=== PATIENT | female | born 1980 | race Caucasian/White ===

== ENCOUNTER 2018-11-19 22:02 | Inpatient (IN) | payer MEDICAID ==
[2018-11-20 02:44] LABS: ADD MAN DIFF? NO
[2018-11-20 02:51] LABS: BASOPHILS % 0.3 % (0.0-2.0); EOSINOPHILS % 0.1 % (0.0-7.0); HEMOGLOBIN 14.2 g/dl (12.0-16.0); LYMPHOCYTES # 0.8 10^3/ul (0.8-2.9); LYMPHOCYTES % 7.9 % (15.0-51.0); MEAN CORPUSCULAR HEMOGLOBIN 28.9 pg (29.0-33.0); MEAN CORPUSCULAR VOLUME 87.6 fl (82.0-101.0); MEAN PLATELET VOLUME 10.5 fl (7.4-10.4); MONOCYTE # 0.4 10^3/ul (0.3-0.9); MONOCYTES % 4.1 % (0.0-11.0); NEUTROPHIL # 8.3 10^3/ul (1.6-7.5); NEUTROPHILS % 87.3 % (39.0-77.0); PLATELET COUNT 216 10^3/UL (140-415); RED BLOOD COUNT 4.91 10^6/ul (4.20-5.40); RED CELL DISTRIBUTION WIDTH 12.5 % (11.5-14.5)
[2018-11-20 02:51] LABS: WHITE BLOOD COUNT 9.5 10^3/ul (4.8-10.8)
[2018-11-20] MEDS: SODIUM CHLORIDE 0.9% 1L BAG IV* (02:56)
[2018-11-20] MEDS: ONDANSETRON 4 MG INJ IV (02:57)
[2018-11-20] MEDS: morphine 4 MG/ML VIAL IV (02:57)
[2018-11-20] MEDS: ACETAMINOPHEN 325 MG TAB PO (02:57)
[2018-11-20] MEDS: CEFTRIAXONE 1 GM/50 ML (PMX) 50 ML IVPB (02:58)
[2018-11-20 03:04] LABS: ADD UMIC YES; UR ASCORBIC ACID NEGATIVE (NEGATIVE); UR BACTERIA FEW /HPF (NONE SEEN); UR BILIRUBIN (Dip) NEGATIVE (NEGATIVE); UR BLOOD (Dip) 3+ mg/dL (NEGATIVE); UR CLARITY SLIGHTLY CLOUDY (CLEAR); UR COLOR YELLOW (YELLOW); UR GLUCOSE (Dip) NEGATIVE (NEGATIVE); UR KETONES (Dip) 2+ mg/dL (NEGATIVE); UR LEUKOCYTE ESTERASE (Dip) NEGATIVE Leu/ul (NEGATIVE); UR NITRITE (Dip) NEGATIVE (NEGATIVE); UR RBC 2 /HPF (0-5); UR SPECIFIC GRAVITY (Dip) 1.015 (1.003-1.030); UR SQUAMOUS EPITHELIAL CELL FEW /HPF (FEW); UR TOTAL PROTEIN (Dip) NEGATIVE (NEGATIVE); UR UROBILINOGEN (Dip) NEGATIVE (NEGATIVE); UR WBC 5 /HPF (0-5)
[2018-11-20 03:07] LABS: ALANINE AMINOTRANSFERASE 37 IU/L (13-69); ALBUMIN 4.6 g/dl (3.3-4.9); ALBUMIN/GLOBULIN RATIO 1.12; ALKALINE PHOSPHATASE 85 IU/L (42-121); ANION GAP 16 (5-13); ASPARTATE AMINO TRANSFERASE 71 IU/L (15-46); BILIRUBIN,INDIRECT 1.4 mg/dl (0-1.1); BILIRUBIN,TOTAL 1.4 mg/dl (0.2-1.3); BLOOD UREA NITROGEN 17 mg/dl (7-20); CALCIUM 9.1 mg/dl (8.4-10.2); CARBON DIOXIDE 20 mmol/L (21-31); CHLORIDE 100 mmol/L (97-110); CREATININE 0.83 mg/dl (0.44-1.00); Estimated GFR > 60 mL/min (>60); GLUCOSE 127 mg/dl (70-220); LIPASE 35 U/L (23-300); POTASSIUM 3.9 mmol/L (3.5-5.1); SODIUM 136 mmol/L (135-144); TOTAL PROTEIN 8.7 g/dl (6.1-8.1)
[2018-11-20 03:11] LABS: INR 1.07; PARTIAL THROMBOPLASTIN TIME 32.5 Sec (23.0-35.0); PT RATIO 1.1
[2018-11-20 05:16] LABS: LACTIC ACID 1.1 mmol/L (0.5-2.0)
[2018-11-20] MEDS ORDERED: DOCUSATE SODIUM 100 MG CAP PO (06:30)
[2018-11-20] MEDS ORDERED: PIPER-TAZO 3.375 GM IV (PMX) 100 ML IVPB (06:30)
[2018-11-20] MEDS ORDERED: ACETAMINOPHEN 325 MG TAB PO ×2 (06:30)
[2018-11-20] MEDS ORDERED: ONDANSETRON 4 MG INJ IV ×3 (06:30→17:30)
[2018-11-20] MEDS ORDERED: BISACODYL (EC) 5 MG TAB PO (06:30)
[2018-11-20] MEDS: SOD CHLORIDE 0.9% 1,000 ML IV ×2 (06:50→17:24)
[2018-11-20] MEDS: metroNIDAZOLE 500 MG/NS (PMX) 100 ML IVPB (06:50)
[2018-11-20 07:30] LABS: LACTIC ACID 1.1 mmol/L (0.5-2.0)
[2018-11-20] MEDS: morphine 2 MG INJ IV ×3 (08:29→23:01)
[2018-11-20] MEDS: PIPER-TAZO 3.375 GM IV (PMX) 100 ML IVPB ×3 (12:01→23:35)
[2018-11-20] MEDS ORDERED: PROPOFOL 100 ML (15:45)
[2018-11-20] MEDS ORDERED: ROCURONIUM 50 MG INJ ×2 (15:45→15:49)
[2018-11-20] MEDS ORDERED: CEFAZOLIN 1 GM INJ (15:45)
[2018-11-20] MEDS ORDERED: LIDOCAINE 2% (SDV) 5 ML INJ (15:46)
[2018-11-20] MEDS ORDERED: ONDANSETRON 4 MG INJ (15:50)
[2018-11-20] MEDS ORDERED: DEXAMETHASONE 4 MG/ML 5 ML INJ (15:50)
[2018-11-20] MEDS: LIDOCAINE 1% (MPF) 30 ML INJ (16:16)
[2018-11-20] MEDS: BUPIVACAINE 0.25%/EPI (SDV) 30 ML INJ (16:16)
[2018-11-20] MEDS ORDERED: SUGAMMADEX SODIUM 200 MG/2 ML VIAL IV (16:50)
[2018-11-20] MEDS: ALBUMIN HUMAN 5% 250 ML IV (17:28)
[2018-11-20] MEDS ORDERED: FENTAnyl 50 MCG/ML VIAL IV ×3 (17:30)
[2018-11-20] MEDS ORDERED: METOCLOPRAMIDE 10 MG INJ IV (17:30)
[2018-11-20] MEDS ORDERED: DIPHENHYDRAMINE 50 MG INJ IV (17:30)
[2018-11-20] MEDS ORDERED: HYDROmorphONE 1 MG/5 ML IV SYRINGE IV ×3 (17:30)
[2018-11-20] MEDS ORDERED: MEPERIDINE 25 MG INJ IV (17:30)
[2018-11-20] MEDS ORDERED: EPHEDrine 25 MG/5 ML SYG IV (17:30)
[2018-11-20] MEDS ORDERED: ALBUTEROL 0.083% (NEB) 2.5 MG/3 ML AMP HHN (17:30)
[2018-11-20] MEDS ORDERED: LABETALOL HCL 20MG INJ IV (17:30)
[2018-11-20] MEDS ORDERED: KETOROLAC 30 MG INJ IV (17:30)
[2018-11-20] MEDS ORDERED: hydrALAzine 20 MG INJ IV (17:30)
[2018-11-20] MEDS ORDERED: MIDAZOLAM 1 MG/ML 2 ML INJ IV (17:30)
[2018-11-21] MEDS: PIPER-TAZO 3.375 GM IV (PMX) 100 ML IVPB ×3 (05:18→17:48)
[2018-11-21] MEDS: morphine 2 MG INJ IV ×4 (05:18→18:44)
[2018-11-21] MEDS: SOD CHLORIDE 0.9% 1,000 ML IV ×2 (05:19→19:56)
[2018-11-21 05:30] LABS: WHITE BLOOD COUNT 11.6 10^3/ul (4.8-10.8)
[2018-11-21 05:30] LABS: HEMATOCRIT 36.8 % (37.0-47.0); HEMOGLOBIN 11.5 g/dl (12.0-16.0); MEAN CORPUSCULAR HEMOGLOBIN 28.4 pg (29.0-33.0); MEAN CORPUSCULAR HGB CONC 31.3 g/dl (32.0-37.0); MEAN CORPUSCULAR VOLUME 90.9 fl (82.0-101.0); MEAN PLATELET VOLUME 10.9 fl (7.4-10.4); PLATELET COUNT 149 10^3/UL (140-415); RED BLOOD COUNT 4.05 10^6/ul (4.20-5.40); RED CELL DISTRIBUTION WIDTH 13.1 % (11.5-14.5)
[2018-11-21 05:42] LABS: POSITIVE DIFF @See below
[2018-11-21 05:43] LABS: ADD MAN DIFF? YES
[2018-11-21 05:43] LABS: PHOSPHORUS 2.4 mg/dl (2.5-4.9)
[2018-11-21 05:51] LABS: ALANINE AMINOTRANSFERASE 49 IU/L (13-69); ALBUMIN 3.1 g/dl (3.3-4.9); ALBUMIN/GLOBULIN RATIO 0.91; ALKALINE PHOSPHATASE 59 IU/L (42-121); ANION GAP 8 (5-13); ASPARTATE AMINO TRANSFERASE 51 IU/L (15-46); BILIRUBIN,INDIRECT 0.4 mg/dl (0-1.1); BILIRUBIN,TOTAL 0.4 mg/dl (0.2-1.3); BLOOD UREA NITROGEN 12 mg/dl (7-20); CALCIUM 7.4 mg/dl (8.4-10.2); CARBON DIOXIDE 21 mmol/L (21-31); CHLORIDE 113 mmol/L (97-110); CHOL/HDL RATIO 5.8 RATIO; CHOLESTEROL 123 mg/dl (100-200); Estimated GFR > 60 mL/min (>60); GLUCOSE 166 mg/dl (70-220); HDL CHOLESTEROL 21 mg/dl (34-88); LDL CHOLESTEROL,CALCULATED 78 mg/dl; MAGNESIUM 2.1 mg/dl (1.7-2.5); POTASSIUM 3.7 mmol/L (3.5-5.1); SODIUM 142 mmol/L (135-144); TOTAL PROTEIN 6.5 g/dl (6.1-8.1); TRIGLYCERIDES 120 mg/dl (0-149)
[2018-11-21 07:57] LABS: THYROID STIMULATING HORMONE 0.536 MIU/L (0.465-4.680)
[2018-11-21 10:25] LABS: ANISOCYTOSIS 1+ (0-0); BAND NEUTROPHILS #M 2.6 10^3/ul (0.0-0.6); BAND NEUTROPHILS % (M) 23 % (0-4); BURR CELLS 3+ (0-0); ERYTHROBLAST% (NRBC) (M) 1 % (0-0); LYMPHOCYTES #M 0.6 10^3/ul (0.8-2.9); LYMPHOCYTES % (M) 6 % (15-51); OVALOCYTES 1+ (0-0); PLATELET ESTIMATE NORMAL; POIKILOCYTOSIS 3+ (0-0); POLYCHROMASIA 1+ (0-0); SEG NEUT #M 8.5 10^3/ul (1.6-7.5); SEGMENTED NEUTROPHILS (M) % 71 % (39-77); SMUDGE%M 1 % (0-0)
[2018-11-21] MEDS: POTASSIUM PHOSPHATE 15 MM in SOD CHLORIDE 0.9% 250 ML IVPB (12:43)
[2018-11-22] MEDS: PIPER-TAZO 3.375 GM IV (PMX) 100 ML IVPB ×4 (00:28→18:47)
[2018-11-22] MEDS: SOD CHLORIDE 0.9% 1,000 ML IV ×2 (00:28→18:47)
[2018-11-22] MEDS: morphine 2 MG INJ IV ×5 (00:28→18:47)
[2018-11-22 05:21] LABS: HEMATOCRIT 33.1 % (37.0-47.0); HEMOGLOBIN 10.7 g/dl (12.0-16.0); MEAN CORPUSCULAR HGB CONC 32.3 g/dl (32.0-37.0); MEAN CORPUSCULAR VOLUME 89.7 fl (82.0-101.0); PLATELET COUNT 178 10^3/UL (140-415); POSITIVE DIFF @See below; RED BLOOD COUNT 3.69 10^6/ul (4.20-5.40); RED CELL DISTRIBUTION WIDTH 13.2 % (11.5-14.5)
[2018-11-22 05:21] LABS: WHITE BLOOD COUNT 13.5 10^3/ul (4.8-10.8)
[2018-11-22 05:22] LABS: ADD MAN DIFF? YES
[2018-11-22] MEDS: NACL 0.9% 3 ML SYG IV (05:32)
[2018-11-22 05:56] LABS: MAGNESIUM 2.4 mg/dl (1.7-2.5)
[2018-11-22 05:56] LABS: PHOSPHORUS 2.1 mg/dl (2.5-4.9)
[2018-11-22 05:58] LABS: ANION GAP 7 (5-13); BLOOD UREA NITROGEN 16 mg/dl (7-20); CARBON DIOXIDE 23 mmol/L (21-31); CHLORIDE 116 mmol/L (97-110); CREATININE 0.67 mg/dl (0.44-1.00); Estimated GFR > 60 mL/min (>60); GLUCOSE 131 mg/dl (70-220); POTASSIUM 3.4 mmol/L (3.5-5.1); SODIUM 146 mmol/L (135-144)
[2018-11-22 07:27] LABS: BAND NEUTROPHILS % (M) 15 % (0-4); BURR CELLS 1+ (0-0); LYMPHOCYTES #M 1.2 10^3/ul (0.8-2.9); LYMPHOCYTES % (M) 9 % (15-51); MONOCYTE #M 0.1 10^3/ul (0.3-0.9); MONOCYTES % (M) 1 % (0-11); PLATELET ESTIMATE NORMAL; POIKILOCYTOSIS 1+ (0-0); POLYCHROMASIA 1+ (0-0); SEG NEUT #M 10.4 10^3/ul (1.6-7.5); SEGMENTED NEUTROPHILS (M) % 75 % (39-77); SMUDGE%M 2 % (0-0)
[2018-11-22] MEDS: POTASSIUM PHOSPHATE 15 MM in SOD CHLORIDE 0.9% 250 ML IVPB (10:04)
[2018-11-23] MEDS: PIPER-TAZO 3.375 GM IV (PMX) 100 ML IVPB ×4 (00:24→17:18)
[2018-11-23] MEDS: morphine 2 MG INJ IV ×2 (00:27→05:15)
[2018-11-23 05:17] LABS: ADD MAN DIFF? NO
[2018-11-23 05:20] LABS: BASOPHILS % 0.3 % (0.0-2.0); EOSINOPHILS % 0.4 % (0.0-7.0); HEMATOCRIT 35.1 % (37.0-47.0); HEMOGLOBIN 11.4 g/dl (12.0-16.0); LYMPHOCYTES # 1.8 10^3/ul (0.8-2.9); LYMPHOCYTES % 19.4 % (15.0-51.0); MEAN CORPUSCULAR HEMOGLOBIN 28.7 pg (29.0-33.0); MEAN CORPUSCULAR HGB CONC 32.5 g/dl (32.0-37.0); MEAN CORPUSCULAR VOLUME 88.4 fl (82.0-101.0); MEAN PLATELET VOLUME 10.8 fl (7.4-10.4); MONOCYTE # 0.5 10^3/ul (0.3-0.9); MONOCYTES % 5.5 % (0.0-11.0); NEUTROPHILS % 73.5 % (39.0-77.0); PLATELET COUNT 201 10^3/UL (140-415); RED BLOOD COUNT 3.97 10^6/ul (4.20-5.40); RED CELL DISTRIBUTION WIDTH 13.2 % (11.5-14.5)
[2018-11-23 05:20] LABS: WHITE BLOOD COUNT 9.5 10^3/ul (4.8-10.8)
[2018-11-23 06:04] LABS: PHOSPHORUS 2.8 mg/dl (2.5-4.9)
[2018-11-23 06:04] LABS: MAGNESIUM 1.7 mg/dl (1.7-2.5)
[2018-11-23 06:20] LABS: ANION GAP 8 (5-13); BLOOD UREA NITROGEN 10 mg/dl (7-20); CALCIUM 7.9 mg/dl (8.4-10.2); CARBON DIOXIDE 23 mmol/L (21-31); CHLORIDE 110 mmol/L (97-110); CREATININE 0.62 mg/dl (0.44-1.00); Estimated GFR > 60 mL/min (>60); GLUCOSE 106 mg/dl (70-220); SODIUM 141 mmol/L (135-144)
[2018-11-23] MEDS: SOD CHLORIDE 0.9% 1,000 ML IV (09:26)
[2018-11-23] MEDS: HYDROCODONE/APAP (5/325) TAB PO ×4 (09:34→21:01)
[2018-11-23] MEDS: POTASSIUM CHLORIDE 100 ML IVPB (10:55)
[2018-11-23] MEDS: POTASSIUM CHLORIDE (SR) 20 MEQ TAB PO (13:37)
[2018-11-24] MEDS: PIPER-TAZO 3.375 GM IV (PMX) 100 ML IVPB ×6 (00:37→23:50)
[2018-11-24 05:20] LABS: HEMOGLOBIN 12.1 g/dl (12.0-16.0); MEAN CORPUSCULAR HEMOGLOBIN 28.9 pg (29.0-33.0); MEAN CORPUSCULAR HGB CONC 32.7 g/dl (32.0-37.0); MEAN CORPUSCULAR VOLUME 88.5 fl (82.0-101.0); MEAN PLATELET VOLUME 10.7 fl (7.4-10.4); PLATELET COUNT 209 10^3/UL (140-415); RED BLOOD COUNT 4.18 10^6/ul (4.20-5.40)
[2018-11-24 05:20] LABS: WHITE BLOOD COUNT 9.6 10^3/ul (4.8-10.8)
[2018-11-24 05:41] LABS: ADD MAN DIFF? YES; MAGNESIUM 1.6 mg/dl (1.7-2.5); POSITIVE DIFF @See below
[2018-11-24 05:41] LABS: PHOSPHORUS 4.1 mg/dl (2.5-4.9)
[2018-11-24] MEDS: HYDROCODONE/APAP (5/325) TAB PO ×5 (05:45→23:55)
[2018-11-24 05:52] LABS: ANION GAP 8 (5-13); BLOOD UREA NITROGEN 7 mg/dl (7-20); CARBON DIOXIDE 29 mmol/L (21-31); CHLORIDE 104 mmol/L (97-110); CREATININE 0.62 mg/dl (0.44-1.00); Estimated GFR > 60 mL/min (>60); GLUCOSE 122 mg/dl (70-220); POTASSIUM 3.4 mmol/L (3.5-5.1); SODIUM 141 mmol/L (135-144)
[2018-11-24 07:14] LABS: ANISOCYTOSIS 1+ (0-0); BAND NEUTROPHILS #M 0.4 10^3/ul (0.0-0.6); BAND NEUTROPHILS % (M) 5 % (0-4); BASOPHIL #M 0.1 10^3/ul (0.0-0.0); BASOPHILS % (M) 2 % (0-2); EOSINOPHILS % (M) 3 % (0-7); LYMPHOCYTES #M 1.4 10^3/ul (0.8-2.9); LYMPHOCYTES % (M) 15 % (15-51); MONOCYTE #M 0.5 10^3/ul (0.3-0.9); MONOCYTES % (M) 6 % (0-11); MYELOCYTES #M 0.2 10^3/ul (0.0-0.0); MYELOCYTES % (M) 3 % (0-0); PLATELET ESTIMATE NORMAL; POIKILOCYTOSIS 1+ (0-0); REACTIVE LYMPHOCYTES #M 0.8 10^3/ul (0.0-0.0); REACTIVE LYMPHOCYTES% (M) 9 % (0-0); SEG NEUT #M 5.5 10^3/ul (1.6-7.5); SEGMENTED NEUTROPHILS (M) % 57 % (39-77); SMUDGE%M 6 % (0-0)
[2018-11-24] MEDS: ENOXAPARIN 40 MG/0.4 ML SYG SC (09:26)
[2018-11-24] MEDS: MAGNESIUM OXIDE 400 MG TAB PO (20:06)
[2018-11-25] MEDS: HYDROCODONE/APAP (5/325) TAB PO ×4 (04:58→20:58)
[2018-11-25] MEDS: PIPER-TAZO 3.375 GM IV (PMX) 100 ML IVPB ×3 (05:38→18:13)
[2018-11-25 05:50] LABS: HEMATOCRIT 38.1 % (37.0-47.0); HEMOGLOBIN 12.3 g/dl (12.0-16.0); MEAN CORPUSCULAR HEMOGLOBIN 28.9 pg (29.0-33.0); MEAN CORPUSCULAR HGB CONC 32.3 g/dl (32.0-37.0); MEAN CORPUSCULAR VOLUME 89.6 fl (82.0-101.0); MEAN PLATELET VOLUME 10.5 fl (7.4-10.4); PLATELET COUNT 206 10^3/UL (140-415); POSITIVE DIFF @See below; RED BLOOD COUNT 4.25 10^6/ul (4.20-5.40); RED CELL DISTRIBUTION WIDTH 12.9 % (11.5-14.5)
[2018-11-25 05:51] LABS: ADD MAN DIFF? YES
[2018-11-25 06:10] LABS: ANION GAP 4 (5-13); BLOOD UREA NITROGEN 6 mg/dl (7-20); CALCIUM 8.3 mg/dl (8.4-10.2); CARBON DIOXIDE 33 mmol/L (21-31); CHLORIDE 102 mmol/L (97-110); CREATININE 0.56 mg/dl (0.44-1.00); Estimated GFR > 60 mL/min (>60); GLUCOSE 114 mg/dl (70-220); SODIUM 139 mmol/L (135-144)
[2018-11-25 08:36] LABS: BAND NEUTROPHILS #M 0.1 10^3/ul (0.0-0.6); BAND NEUTROPHILS % (M) 1 % (0-4); EOSINOPHILS % (M) 4 % (0-7); GIANT THROMBO% (M) 1 % (0-0); LYMPHOCYTES #M 2.7 10^3/ul (0.8-2.9); LYMPHOCYTES % (M) 25 % (15-51); METAMYELOCYTES #M 0.1 10^3/ul (0.0-0.0); METAMYELOCYTES %M 1 % (0-0); MONOCYTE #M 0.2 10^3/ul (0.3-0.9); MONOCYTES % (M) 2 % (0-11); MYELOCYTES #M 0.1 10^3/ul (0.0-0.0); MYELOCYTES % (M) 1 % (0-0); PLATELET ESTIMATE NORMAL; SEG NEUT #M 7.3 10^3/ul (1.6-7.5); SEGMENTED NEUTROPHILS (M) % 66 % (39-77); SMUDGE%M 4 % (0-0)
[2018-11-25] MEDS: ENOXAPARIN 40 MG/0.4 ML SYG SC (09:01)
[2018-11-25 10:19] LABS: MAGNESIUM 1.9 mg/dl (1.7-2.5)
[2018-11-26] MEDS: PIPER-TAZO 3.375 GM IV (PMX) 100 ML IVPB ×2 (00:42→06:06)
[2018-11-26] MEDS: HYDROCODONE/APAP (5/325) TAB PO ×4 (00:48→17:41)
[2018-11-26 05:31] LABS: WHITE BLOOD COUNT 8.9 10^3/ul (4.8-10.8)
[2018-11-26 05:31] LABS: HEMATOCRIT 35.7 % (37.0-47.0); HEMOGLOBIN 11.3 g/dl (12.0-16.0); MEAN CORPUSCULAR HEMOGLOBIN 28.6 pg (29.0-33.0); MEAN CORPUSCULAR HGB CONC 31.7 g/dl (32.0-37.0); MEAN CORPUSCULAR VOLUME 90.4 fl (82.0-101.0); MEAN PLATELET VOLUME 10.2 fl (7.4-10.4); PLATELET COUNT 217 10^3/UL (140-415); RED BLOOD COUNT 3.95 10^6/ul (4.20-5.40); RED CELL DISTRIBUTION WIDTH 12.8 % (11.5-14.5)
[2018-11-26 05:35] LABS: ADD MAN DIFF? YES; POSITIVE DIFF @See below
[2018-11-26 06:15] LABS: ANION GAP 5 (5-13); BLOOD UREA NITROGEN 6 mg/dl (7-20); CALCIUM 8.8 mg/dl (8.4-10.2); CARBON DIOXIDE 32 mmol/L (21-31); CHLORIDE 103 mmol/L (97-110); CREATININE 0.55 mg/dl (0.44-1.00); Estimated GFR > 60 mL/min (>60); GLUCOSE 113 mg/dl (70-220); SODIUM 140 mmol/L (135-144)
[2018-11-26 07:49] LABS: ANISOCYTOSIS 1+ (0-0); BAND NEUTROPHILS #M 0.7 10^3/ul (0.0-0.6); BAND NEUTROPHILS % (M) 8 % (0-4); BASOPHILS % (M) 1 % (0-2); EOSINOPHILS % (M) 7 % (0-7); HYPOCHROMASIA 1+ (0-0); LYMPHOCYTES #M 1.6 10^3/ul (0.8-2.9); LYMPHOCYTES % (M) 19 % (15-51); MICROCYTOSIS 1+ (0-0); MONOCYTE #M 0.1 10^3/ul (0.3-0.9); MONOCYTES % (M) 2 % (0-11); MYELOCYTES % (M) 1 % (0-0); PLATELET ESTIMATE NORMAL; POLYCHROMASIA 1+ (0-0); REACTIVE LYMPHOCYTES #M 0.2 10^3/ul (0.0-0.0); REACTIVE LYMPHOCYTES% (M) 3 % (0-0); SEG NEUT #M 5.3 10^3/ul (1.6-7.5); SEGMENTED NEUTROPHILS (M) % 59 % (39-77); SMUDGE%M 6 % (0-0)
[2018-11-26] MEDS: ENOXAPARIN 40 MG/0.4 ML SYG SC (09:19)
== END 2018-11-26 19:45 | disposition home or self-care (01) | DRG 853 ==
LOC: E/R 22:02 → MS1 11-20 06:27
PROC: 0DTJ4ZZ Resection of Appendix, Percutaneous Endoscopic Approach (ICD-10-PCS; principal; 2018-11-20 15:51)
PROC: 0W9J4ZZ Drainage of Pelvic Cavity, Percutaneous Endoscopic Approach (ICD-10-PCS; 2018-11-20 15:51)
PROC: 0W9G4ZZ Drainage of Peritoneal Cavity, Percutaneous Endoscopic Approach (ICD-10-PCS; 2018-11-20 15:51)
DX: A41.9 Sepsis, unspecified organism (principal); K35.21 Acute appendicitis with generalized peritonitis, with abscess; E87.2 Acidosis; Z68.41 Body mass index [BMI] 40.0-44.9, adult; E66.01 Morbid (severe) obesity due to excess calories; E78.5 Hyperlipidemia, unspecified; E80.6 Other disorders of bilirubin metabolism; E87.6 Hypokalemia; K38.1 Appendicular concretions; K76.0 Fatty (change of) liver, not elsewhere classified; R73.03 Prediabetes
CPT/HCPCS: 36415; 74176; 80048; 80053; 80061; 81001; 83036; 83605; 83690; 83735; 84100; 84443; 84703; 85025; 85610; 85730; 87040-91; 87086; 88304; 93005; 96374; 96375; 99285-25

== ENCOUNTER 2018-12-21 12:20 | Emergency (ER) | payer MEDICAID ==
[2018-12-21 13:37] LABS: ADD MAN DIFF? NO
[2018-12-21 13:39] LABS: BASOPHIL # 0.1 10^3/ul (0.0-0.1); BASOPHILS % 0.7 % (0.0-2.0); EOSINOPHILS # 0.3 10^3/ul (0.0-0.5); EOSINOPHILS % 4.2 % (0.0-7.0); HEMOGLOBIN 13.4 g/dl (12.0-16.0); LYMPHOCYTES # 2.9 10^3/ul (0.8-2.9); LYMPHOCYTES % 35.1 % (15.0-51.0); MEAN CORPUSCULAR HEMOGLOBIN 28.9 pg (29.0-33.0); MEAN CORPUSCULAR HGB CONC 32.7 g/dl (32.0-37.0); MEAN CORPUSCULAR VOLUME 88.4 fl (82.0-101.0); MEAN PLATELET VOLUME 10.3 fl (7.4-10.4); MONOCYTE # 0.6 10^3/ul (0.3-0.9); MONOCYTES % 7.3 % (0.0-11.0); NEUTROPHIL # 4.3 10^3/ul (1.6-7.5); NEUTROPHILS % 52.5 % (39.0-77.0); PLATELET COUNT 221 10^3/UL (140-415); RED BLOOD COUNT 4.64 10^6/ul (4.20-5.40); RED CELL DISTRIBUTION WIDTH 12.7 % (11.5-14.5)
[2018-12-21 13:39] LABS: WHITE BLOOD COUNT 8.1 10^3/ul (4.8-10.8)
[2018-12-21 13:56] LABS: ALANINE AMINOTRANSFERASE 42 IU/L (13-69); ALBUMIN 4.6 g/dl (3.3-4.9); ALBUMIN/GLOBULIN RATIO 1.17; ALKALINE PHOSPHATASE 72 IU/L (42-121); ANION GAP 12 (5-13); ASPARTATE AMINO TRANSFERASE 31 IU/L (15-46); BILIRUBIN,INDIRECT 0.6 mg/dl (0-1.1); BILIRUBIN,TOTAL 0.6 mg/dl (0.2-1.3); BLOOD UREA NITROGEN 10 mg/dl (7-20); CALCIUM 9.9 mg/dl (8.4-10.2); CARBON DIOXIDE 24 mmol/L (21-31); CHLORIDE 103 mmol/L (97-110); Estimated GFR > 60 mL/min (>60); GLUCOSE 94 mg/dl (70-220); POTASSIUM 4.3 mmol/L (3.5-5.1); SODIUM 139 mmol/L (135-144); TOTAL PROTEIN 8.5 g/dl (6.1-8.1)
[2018-12-21] MEDS: KETOROLAC 30 MG INJ IV (15:04)
[2018-12-21] MEDS: ONDANSETRON 4 MG INJ IV (15:09)
[2018-12-21] MEDS: FAMOTIDINE 20 MG TAB PO (15:09)
[2018-12-21 15:24] LABS: LIPASE 113 U/L (23-300)
[2018-12-21 15:27] LABS: ADD UMIC YES; UR ASCORBIC ACID NEGATIVE (NEGATIVE); UR BACTERIA FEW /HPF (NONE SEEN); UR BILIRUBIN (Dip) NEGATIVE (NEGATIVE); UR BLOOD (Dip) 1+ mg/dL (NEGATIVE); UR CLARITY CLOUDY (CLEAR); UR COLOR YELLOW (YELLOW); UR GLUCOSE (Dip) NEGATIVE (NEGATIVE); UR KETONES (Dip) NEGATIVE (NEGATIVE); UR LEUKOCYTE ESTERASE (Dip) TRACE Leu/ul (NEGATIVE); UR NITRITE (Dip) NEGATIVE (NEGATIVE); UR RBC 2 /HPF (0-5); UR SPECIFIC GRAVITY (Dip) 1.006 (1.003-1.030); UR SQUAMOUS EPITHELIAL CELL MANY /HPF (FEW); UR TOTAL PROTEIN (Dip) NEGATIVE (NEGATIVE); UR UROBILINOGEN (Dip) NEGATIVE (NEGATIVE); UR WBC 8 /HPF (0-5)
[2018-12-21] MEDS: IOHEXOL 300MG/ML 150 ML BTL (16:03)
[2018-12-21] MEDS: SOD CHLORIDE 0.9% 100 ML (16:03)
== END 2018-12-21 19:50 | disposition home or self-care (01) ==
LOC: FTE 12:20
DX: G89.18 Other acute postprocedural pain (principal); N39.0 Urinary tract infection, site not specified; D35.00 Benign neoplasm of unspecified adrenal gland
CPT/HCPCS: 74177; 76830; 76856; 80053; 81001; 81025; 83690; 85025; 96374; 99285-25